=== PATIENT | male | born 1985 | race African-American/Black ===

== ENCOUNTER 2017-02-18 08:26 | Inpatient (IN) | payer OTHER, MEDICAID ==
[~2017-02-18] VITALS: Ht 180.3 cm; Wt 83.9 kg
[2017-02-18] MEDS ORDERED: SODIUM CHLORIDE 0.9% 1,000 ML IV ONE (08:35)
[2017-02-18] MEDS ORDERED: LEVETIRACETAM 500MG PREMIX 100 ML IV ONE (09:00)
[2017-02-18] MEDS ORDERED: LEVETIRACETAM 500MG TABLET PO ONE (09:00)
[2017-02-18] MEDS ORDERED: MIDAZOLAM HCL 2 MG/2 ML VIAL IV ONE ×3 (09:15→13:00)
[2017-02-18] MEDS ORDERED: MIDAZOLAM HCL 2 MG/2 ML VIAL ONE (10:19)
[2017-02-18 10:39] LABS: HEMATOCRIT. 33.6 % (42.0-52.0); MEAN CORPUSCULAR HEMOGLOBIN 21.9 pg (28.0-32.0); MEAN CORPUSCULAR VOLUME 73.3 fL (80.0-94.0); MEAN PLATELET VOLUME 7.4 fl (7.4-10.4); PLATELET 466 x1000/uL (130-400); RED BLOOD CELL COUNT 4.58 mill/uL (4.7-6.1); RED CELL DISTRIBUTION WIDTH 25.3 % (11.6-14.6)
[2017-02-18 10:45] LABS: CHLORIDE 104 mEq/L (98-107)
[2017-02-18 10:48] LABS: AMMONIA 39 uMol/L (<32)
[2017-02-18 10:52] LABS: INR 1.1; PARTIAL THROMBOPLASTIN TIME 27.5 sec (23.4-31.0); PROTHROMBIN TIME 11.4 sec (9.4-11.6)
[2017-02-18 10:54] LABS: CARBON DIOXIDE 27 mEq/L (21-32); CREATINE KINASE 362 IU/L (39-308); ETHANOL BLOOD < 10 mg/dL
[2017-02-18 10:59] LABS: CARBAMAZEPINE < 0.5 ug/mL (4-12); PHENOBARBITAL < 2.1 ug/mL (15.0-40.0); VALPROIC ACID < 3.0 ug/mL (50-100)
[2017-02-18 12:53] LABS: PLATELET ESTIMATE INCREASED
[2017-02-18 13:39] LABS: *AMPHETAMINES SCREEN URINE NEGATIVE (NEGATIVE); *BARBITURATES SCREEN URINE NEGATIVE (NEGATIVE); *BENZODIAZEPINES SCREEN URINE PRESUMTIVE POSITIVE (NEGATIVE); *COCAINE SCREEN URINE NEGATIVE (NEGATIVE); CANNABINOID URINE SCREEN PRESUMTIVE POSITIVE (NEGATIVE); METHADONE URINE SCREEN NEGATIVE (NEGATIVE); OPIATES URINE SCREEN NEGATIVE (NEGATIVE); PHENCYCLIDINE URINE SCREEN NEGATIVE (NEGATIVE)
[2017-02-18] MEDS ORDERED: DEXT 5%/0.45% NACL KCL 20MEQ/L 1,000 ML IV ONE (13:52)
[2017-02-18 16:13] VITALS: BP 117/80
[2017-02-18 16:35] VITALS: BP 117/80
[2017-02-18] MEDS ORDERED: LEVETIRACETAM 500MG PREMIX 100 ML IV SCH (17:00)
[2017-02-18] MEDS: LEVETIRACETAM 500 MG in SODIUM CHLORIDE 0.9% 100 ML IV SCH (18:17)
[2017-02-18 20:00] VITALS: BP 112/59
[2017-02-18] MEDS ORDERED: DIPHENHYDRAMINE 50MG/ML VIAL IV PRN (22:45)
[2017-02-18] MEDS ORDERED: LORAZEPAM 2MG/ML CPJ IV PRN (22:45)
[2017-02-18] MEDS ORDERED: ONDANSETRON HCL 4MG/2ML VIAL IV PRN (22:45)
[2017-02-18] MEDS ORDERED: CLONIDINE 0.1MG TABLET PO PRN (22:45)
[2017-02-18] MEDS ORDERED: MAGNESIUM/ALUMINUM HYDROXIDE/SIMETHICONE 30ML UDC PO PRN (22:45)
[2017-02-18] MEDS ORDERED: ACETAMINOPHEN 325MG TABLET PO PRN (22:45)
[2017-02-18] MEDS ORDERED: LORAZEPAM 1MG TABLET PO PRN (23:00)
[2017-02-19] VITALS: BP 119/66
[2017-02-19 04:00] VITALS: BP 128/77
[2017-02-19] MEDS: LEVETIRACETAM 500 MG in SODIUM CHLORIDE 0.9% 100 ML IV SCH (05:46)
[2017-02-19] MEDS ORDERED: SODIUM CHLORIDE 0.9% INJ 3ML FLUSH IVF SCH (06:00)
[2017-02-19 08:00] VITALS: BP 119/75
[2017-02-19 12:00] VITALS: BP 122/72
[2017-02-19 14:44] VITALS: BP 122/72
[2017-02-19] MEDS ORDERED: LEVETIRACETAM 500MG PREMIX 100 ML IV SCH (18:00)
== END 2017-02-19 17:05 | disposition home or self-care (01) | DRG 53 ==
LOC: ER 08:33 → EDBD 08:33 → 5WST 13:07 → EDBEDREQ 13:11 → ENRESERV 13:20
PROVIDERS: ADMIT Internal Medicine; ATTEND Internal Medicine
DX: G40.909 Epilepsy, unspecified, not intractable, without status epilepticus (principal); J96.90 Respiratory failure, unspecified, unspecified whether with hypoxia or hypercapnia; I49.9 Cardiac arrhythmia, unspecified; Z87.891 Personal history of nicotine dependence; Z91.14 Patient's other noncompliance with medication regimen; Z59.0 Homelessness
CPT/HCPCS: 36415; 70450; 80053; 80156; 80165; 80184; 80185; 80305; 80307; 80329; 82140; 82550; 82962; 83690; 85025; 85610; 85730; 96374; 96375; 99291; G0482; J1953; J2250; J7030; J7040; J7050